=== PATIENT | male | born 1995 | race Caucasian/White ===

== ENCOUNTER 2019-09-16 18:25 | Emergency (ER) | payer OTHER ==
[~2019-09-16] VITALS: Ht 188 cm; Wt 90.9 kg
[2019-09-16 18:32] VITALS: BP 142/75; TEMP 98.4
[2019-09-16 19:39] VITALS: PULSE 89
== END 2019-09-16 19:39 | disposition home or self-care (01) ==
LOC: COL.ER 18:25
DX: S60.221A Contusion of right hand, initial encounter (principal); W23.0XXA Caught, crushed, jammed, or pinched between moving objects, initial encounter; Y92.009 Unspecified place in unspecified non-institutional (private) residence as the place of occurrence of the external cause

== ENCOUNTER 2019-09-27 14:48 | Emergency (ER) | payer OTHER ==
[~2019-09-27] VITALS: Ht 188 cm; Wt 93.2 kg
[2019-09-27 14:53] VITALS: TEMP 98.2
[2019-09-27 15:20] LABS: BASO # 0.1 (0.0-0.2); BASO % 0.9 % (0.0-2.0); EOS # 0.1 (0.0-0.7); EOS % 1.5 % (0-4.0); GRAN # 4.9 (1.4-6.5); GRAN % 54.2 % (42.2-75.2); HEMATOCRIT 44.7 % (42.0-52.0); HEMOGLOBIN 15.5 g/dl (13.5-18.0); LYMPH # 3.2 (1.2-3.4); LYMPH % 34.8 % (20.0-51.0); MEAN CELL VOLUME 92 fl (80.0-100.0); MEAN CORPUSCULAR HEMOGLOBIN 32 pg (27.0-31.0); MEAN CORPUSCULAR HGB CONC 35 g/dl (33.0-37.0); MEAN PLATELET VOLUME 9.1 fl (7.4-10.4); MONO # 0.8 (0.1-0.6); MONO % 8.3 % (1.7-9.3); PLATELET COUNT 327 K/mm3 (130-400); RED BLOOD COUNT 4.85 M/mm3 (4.20-5.60); REDCELL DISTRIBUTION WIDTH-CV 12.1 % (11.5-14.5)
[2019-09-27 15:35] LABS: ALANINE AMINOTRANSFERASE 16 U/L (21-72); ALBUMIN 4.5 gm/dL (3.5-5.0); ALKALINE PHOSPHATASE 72 U/L (50-136); ANION GAP 10 mmol/L (7-16); AST,SGOT 34 U/L (15-37); BILIRUBIN,TOTAL 0.9 mg/dL (0.0-1.0); BLOOD UREA NITROGEN 16 mg/dL (9-20); CALCIUM 9.6 mg/dL (8.4-10.2); CARBON DIOXIDE 27 mmol/L (22-30); CHLORIDE 105 mmol/L (98-107); CREATININE, serum 0.99 (0.66-1.25); GLUCOSE 86 mg/dL (74-106); POTASSIUM 3.9 mmol/L (3.4-5.0); SODIUM 141 mmol/L (137-145); TOTAL PROTEIN 7.9 gm/dL (6.4-8.2)
[2019-09-27 15:39] LABS: C-REACTIVE PROTEIN < 0.5 mg/dL (0.0-0.9)
[2019-09-27 15:44] LABS: TROPONIN-I < 0.012 ng/mL (0.000-0.035)
[2019-09-27 16:10] LABS: ERYTHROCYTE SEDIMENTATION RATE 7 mm/hr (0-15)
[2019-09-27 16:34] VITALS: BP 115/62; PULSE 74
== END 2019-09-27 16:45 | disposition home or self-care (01) ==
LOC: COL.ER 14:48
PROVIDERS: Emergency Medicine
DX: G43.909 Migraine, unspecified, not intractable, without status migrainosus (principal); R55 Syncope and collapse
CPT/HCPCS: J1885; J7030

== ENCOUNTER 2020-03-06 16:26 | Emergency (ER) | payer OTHER ==
[~2020-03-06] VITALS: Ht 198.1 cm; Wt 90.9 kg
[2020-03-06 16:27] VITALS: TEMP 98.5
[2020-03-06 17:02] LABS: BASO # 0.1 (0.0-0.2); BASO % 0.5 % (0.0-2.0); EOS % 0.3 % (0-4.0); GRAN # 9.1 (1.4-6.5); GRAN % 78.1 % (42.2-75.2); HEMOGLOBIN 14.6 g/dl (13.5-18.0); LYMPH # 1.6 (1.2-3.4); LYMPH % 13.5 % (20.0-51.0); MEAN CELL VOLUME 92 fl (80.0-100.0); MEAN CORPUSCULAR HEMOGLOBIN 32 pg (27.0-31.0); MEAN CORPUSCULAR HGB CONC 35 g/dl (33.0-37.0); MONO # 0.9 (0.1-0.6); MONO % 7.3 % (1.7-9.3); PLATELET COUNT 304 K/mm3 (130-400); RED BLOOD COUNT 4.56 M/mm3 (4.20-5.60); REDCELL DISTRIBUTION WIDTH-CV 12.9 % (11.5-14.5)
[2020-03-06 17:12] LABS: ALANINE AMINOTRANSFERASE 53 U/L (4-49); ALBUMIN 4.3 gm/dL (3.5-5.0); ALKALINE PHOSPHATASE 73 U/L (50-136); ANION GAP 9 mmol/L (7-16); AST,SGOT 37 U/L (15-37); BILIRUBIN,TOTAL 0.9 mg/dL (0.0-1.0); BLOOD UREA NITROGEN 18 mg/dL (9-20); CALCIUM 9.5 mg/dL (8.4-10.2); CARBON DIOXIDE 22 mmol/L (22-30); CHLORIDE 109 mmol/L (98-107); CREATININE, serum 0.91 (0.66-1.25); GLUCOSE 79 mg/dL (74-106); POTASSIUM 3.9 mmol/L (3.4-5.0); SODIUM 139 mmol/L (137-145); TOTAL PROTEIN 7.6 gm/dL (6.4-8.2)
[2020-03-06 17:28] LABS: PROLACTIN 11.2 ng/mL (3.7-17.9)
[2020-03-06 17:39] LABS: TROPONIN-I < 0.012 ng/mL (0.000-0.035)
[2020-03-06 18:42] LABS: MUCOUS Present /lpf; PH 5 (5-8); SQUAMOUS EPITHELIAL 0-2 /hpf; URINE APPEARANCE Hazy; URINE BACTERIA None Seen /hpf; URINE BILIRUBIN Negative (NEGATIVE); URINE BLOOD Negative (NEGATIVE); URINE COLOR Yellow; URINE GLUCOSE Negative (NEGATIVE); URINE KETONE Trace (NEGATIVE); URINE LEUKOCYTE ESTERASE Negative (NEGATIVE); URINE NITRATE Negative (NEGATIVE); URINE PROTEIN(semi-quant) Negative (NEGATIVE); URINE RBC 0-2 /hpf; URINE UROBILINOGEN Negative (NEGATIVE); URINE WBC 0-2 /hpf
[2020-03-06 18:50] LABS: TRICYCLIC ANTIDEPRESS URINE NEGATIVE
[2020-03-06 18:52] LABS: COLLECTION METHOD CLEAN CATCH
[2020-03-06] MEDS ORDERED: KEPPRA 500MG500 MG PO (19:21)
[2020-03-06 19:42] VITALS: BP 108/68; PULSE 89
== END 2020-03-06 19:45 | disposition left against medical advice (07) ==
LOC: COL.ER 16:26
PROVIDERS: Emergency Medicine
DX: G83.84 Todd's paralysis (postepileptic) (principal)
CPT/HCPCS: J1953

== ENCOUNTER 2020-11-09 15:26 | Emergency (ER) | payer OTHER ==
[~2020-11-09] VITALS: Ht 188 cm; Wt 109.1 kg
[~2020-11-09 15:26] MED LIST: KEPPRA 500MG500 MG PO
[2020-11-09 15:27] VITALS: TEMP 98.1
[2020-11-09 15:46] LABS: BASO # 0.1 (0.0-0.2); BASO % 0.7 % (0.0-2.0); EOS # 0.1 (0.0-0.7); EOS % 0.7 % (0-4.0); GRAN # 9.3 (1.4-6.5); GRAN % 69.2 % (42.2-75.2); HEMATOCRIT 45.2 % (42.0-52.0); LYMPH # 2.9 (1.2-3.4); LYMPH % 21.4 % (20.0-51.0); MEAN CELL VOLUME 90 fl (80.0-100.0); MEAN CORPUSCULAR HEMOGLOBIN 32 pg (27.0-31.0); MEAN CORPUSCULAR HGB CONC 35 g/dl (33.0-37.0); MEAN PLATELET VOLUME 9.7 fl (7.4-10.4); MONO % 7.6 % (1.7-9.3); PLATELET COUNT 296 K/mm3 (130-400); RED BLOOD COUNT 5.03 M/mm3 (4.20-5.60); REDCELL DISTRIBUTION WIDTH-CV 12.3 % (11.5-14.5)
[2020-11-09 16:23] LABS: ALCOHOL(ethanol),MEDICAL < 10 mg/dL; BLOOD UREA NITROGEN 18 mg/dL (9-20); CREATININE, serum 1.1 (0.66-1.25); GLUCOSE 89 mg/dL (74-106)
[2020-11-09 16:24] LABS: ALANINE AMINOTRANSFERASE 35 U/L (4-49); ALBUMIN 4.6 gm/dL (3.5-5.0); ALKALINE PHOSPHATASE 74 U/L (50-136); ANION GAP 11 mmol/L (7-16); AST,SGOT 41 U/L (15-37); BILIRUBIN,TOTAL 0.7 mg/dL (0.0-1.0); CALCIUM 9.4 mg/dL (8.4-10.2); CARBON DIOXIDE 26 mmol/L (22-30); CHLORIDE 104 mmol/L (98-107); POTASSIUM 3.9 mmol/L (3.4-5.0); SODIUM 141 mmol/L (137-145); TOTAL PROTEIN 8.2 gm/dL (6.4-8.2)
[2020-11-09 16:25] LABS: ACETAMINOPHEN < 10 ug/mL (10-30); SALICYLATE < 1.0 mg/dL
[2020-11-09 17:01] LABS: COLLECTION METHOD CLEAN CATCH
[2020-11-09 17:22] LABS: TRICYCLIC ANTIDEPRESS URINE NEGATIVE
[2020-11-09 17:40] VITALS: BP 129/78; PULSE 110
[2020-11-09 18:10] LABS: MUCOUS Present /lpf; PH 5 (5-8); SQUAMOUS EPITHELIAL None Seen /hpf; URINE APPEARANCE Hazy; URINE BACTERIA None Seen /hpf; URINE BILIRUBIN Negative (NEGATIVE); URINE BLOOD Negative (NEGATIVE); URINE COLOR Yellow; URINE GLUCOSE Negative (NEGATIVE); URINE KETONE Negative (NEGATIVE); URINE LEUKOCYTE ESTERASE Negative (NEGATIVE); URINE NITRATE Negative (NEGATIVE); URINE PROTEIN(semi-quant) 2+ (NEGATIVE); URINE RBC 0-2 /hpf; URINE UROBILINOGEN Negative (NEGATIVE)
== END 2020-11-09 17:45 | disposition home or self-care (01) ==
LOC: COL.ER 15:26
PROVIDERS: Family Medicine
DX: S60.221A Contusion of right hand, initial encounter (principal); R51.9 Headache, unspecified; G40.909 Epilepsy, unspecified, not intractable, without status epilepticus; X58.XXXA Exposure to other specified factors, initial encounter
CPT/HCPCS: J7030

== ENCOUNTER 2020-11-10 10:25 | Emergency (ER) | payer OTHER ==
[~2020-11-10] VITALS: Ht 188 cm; Wt 104.5 kg
[2020-11-10 10:27] VITALS: TEMP 98.6
[2020-11-10 10:47] LABS: BASO # 0.1 (0.0-0.2); BASO % 0.4 % (0.0-2.0); EOS # 0.2 (0.0-0.7); EOS % 1.3 % (0-4.0); GRAN # 10.6 (1.4-6.5); GRAN % 76.9 % (42.2-75.2); HEMATOCRIT 43.2 % (42.0-52.0); LYMPH # 2.1 (1.2-3.4); LYMPH % 15.1 % (20.0-51.0); MEAN CELL VOLUME 92 fl (80.0-100.0); MEAN CORPUSCULAR HEMOGLOBIN 32 pg (27.0-31.0); MEAN CORPUSCULAR HGB CONC 35 g/dl (33.0-37.0); MONO # 0.8 (0.1-0.6); MONO % 5.9 % (1.7-9.3); PLATELET COUNT 267 K/mm3 (130-400); REDCELL DISTRIBUTION WIDTH-CV 12.4 % (11.5-14.5)
[2020-11-10 11:02] LABS: ALCOHOL(ethanol),MEDICAL < 10 mg/dL
[2020-11-10 11:16] LABS: BLOOD UREA NITROGEN 19 mg/dL (9-20); GLUCOSE 135 mg/dL (74-106); POTASSIUM 3.8 mmol/L (3.4-5.0); SODIUM 140 mmol/L (137-145)
[2020-11-10 11:17] LABS: ALANINE AMINOTRANSFERASE 30 U/L (4-49); ALBUMIN 4.3 gm/dL (3.5-5.0); ALKALINE PHOSPHATASE 70 U/L (50-136); AST,SGOT 41 U/L (15-37); BILIRUBIN,TOTAL 0.7 mg/dL (0.0-1.0); CALCIUM 9.1 mg/dL (8.4-10.2); CARBON DIOXIDE 25 mmol/L (22-30); CHLORIDE 105 mmol/L (98-107); TOTAL PROTEIN 7.6 gm/dL (6.4-8.2)
[2020-11-10 11:18] LABS: ACETAMINOPHEN < 10 ug/mL (10-30); ANION GAP 10 mmol/L (7-16); TROPONIN-I < 0.012 ng/mL (0.000-0.035)
[2020-11-10 13:05] LABS: COLLECTION METHOD CLEAN CATCH
[2020-11-10 13:22] LABS: PH 5 (5-8); SQUAMOUS EPITHELIAL None Seen /hpf; URINE APPEARANCE Clear; URINE BACTERIA None Seen /hpf; URINE BILIRUBIN Negative (NEGATIVE); URINE BLOOD Negative (NEGATIVE); URINE COLOR Yellow; URINE GLUCOSE Negative (NEGATIVE); URINE KETONE Negative (NEGATIVE); URINE LEUKOCYTE ESTERASE Negative (NEGATIVE); URINE NITRATE Negative (NEGATIVE); URINE PROTEIN(semi-quant) 2+ (NEGATIVE); URINE RBC 0-2 /hpf; URINE UROBILINOGEN Negative (NEGATIVE)
[2020-11-10 13:34] LABS: TRICYCLIC ANTIDEPRESS URINE NEGATIVE
[2020-11-10 14:15] VITALS: BP 112/79; PULSE 101
== END 2020-11-10 14:15 | disposition left against medical advice (07) ==
LOC: COL.ER 10:25
PROVIDERS: Nurse Practitioner Primary Care
DX: R09.2 Respiratory arrest (principal); Z20.828 Contact with and (suspected) exposure to other viral communicable diseases; Z53.29 Procedure and treatment not carried out because of patient's decision for other reasons

== ENCOUNTER 2021-03-10 00:58 | Emergency (ER) | payer OTHER ==
[~2021-03-10] VITALS: Ht 188 cm; Wt 109.1 kg
[2021-03-10 00:59] VITALS: TEMP 98.6
[2021-03-10 01:16] LABS: BASO # 0.1 (0.0-0.2); BASO % 0.4 % (0.0-2.0); EOS # 0.2 (0.0-0.7); EOS % 1.3 % (0-4.0); GRAN # 11.6 (1.4-6.5); GRAN % 76.3 % (42.2-75.2); HEMATOCRIT 45.6 % (42.0-52.0); HEMOGLOBIN 15.2 g/dl (13.5-18.0); LYMPH # 2.2 (1.2-3.4); LYMPH % 14.4 % (20.0-51.0); MEAN CELL VOLUME 95 fl (80.0-100.0); MEAN CORPUSCULAR HEMOGLOBIN 32 pg (27.0-31.0); MEAN CORPUSCULAR HGB CONC 33 g/dl (33.0-37.0); MEAN PLATELET VOLUME 9.3 fl (7.4-10.4); MONO # 1.1 (0.1-0.6); MONO % 7.2 % (1.7-9.3); PLATELET COUNT 289 K/mm3 (130-400); RED BLOOD COUNT 4.82 M/mm3 (4.20-5.60); REDCELL DISTRIBUTION WIDTH-CV 12.3 % (11.5-14.5)
[2021-03-10 01:22] LABS: ALANINE AMINOTRANSFERASE 23 U/L (4-49); ALBUMIN 4.7 gm/dL (3.5-5.0); ALKALINE PHOSPHATASE 76 U/L (50-136); ANION GAP 12 mmol/L (7-16); AST,SGOT 37 U/L (15-37); BILIRUBIN,TOTAL 0.3 mg/dL (0.0-1.0); BLOOD UREA NITROGEN 25 mg/dL (9-20); CALCIUM 9.4 mg/dL (8.4-10.2); CARBON DIOXIDE 25 mmol/L (22-30); CHLORIDE 104 mmol/L (98-107); CREATININE, serum 1.15 (0.66-1.25); GLUCOSE 163 mg/dL (74-106); POTASSIUM 4.1 mmol/L (3.4-5.0); SODIUM 142 mmol/L (137-145); TOTAL PROTEIN 8.6 gm/dL (6.4-8.2)
[2021-03-10 01:24] LABS: ACETAMINOPHEN < 10 ug/mL (10-30); ALCOHOL(ethanol),MEDICAL < 10 mg/dL; SALICYLATE < 1.0 mg/dL
[2021-03-10 02:47] LABS: TRICYCLIC ANTIDEPRESS URINE NEGATIVE
[2021-03-10] MEDS ORDERED: NARCAN4 MG NS (02:49)
[2021-03-10 03:01] VITALS: BP 127/70; PULSE 117
== END 2021-03-10 03:01 | disposition left against medical advice (07) ==
LOC: COL.ER 00:58
PROVIDERS: Emergency Medicine
DX: T40.2X1A Poisoning by other opioids, accidental (unintentional), initial encounter (principal); R09.2 Respiratory arrest; G40.909 Epilepsy, unspecified, not intractable, without status epilepticus; F17.210 Nicotine dependence, cigarettes, uncomplicated; Z79.899 Other long term (current) drug therapy; Z91.14 Patient's other noncompliance with medication regimen
CPT/HCPCS: J1953; J2310; J2405; J7030